=== PATIENT | female | born 1940 | race Caucasian/White ===

== ENCOUNTER 2016-05-25 06:47 | Day surgery (SDC) | payer MEDICARE, BC ==
[~2016-05-25 06:47] MED LIST: Lactated Ringers 1,000 ML IV SCH; Lidocaine 1%/Sod Bicarbonate in NS 8.4% 1 ML Syringe IV PRN; Sodium Chloride 0.9% 10 ML Syringe FLUSH PRN
--- NOTE | 2016-05-25 07:40 | PCM.PREANE ---
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: Reports: no symptoms Respiratory: Reports: no symptoms Cardiovascular: Reports: no symptoms GI: Reports: no symptoms Other: Reports: none - PHYSICAL ASSESSMENT HR: 56 O2 Sat by Pulse Oximetry: 98 RR: 15 BP: 102/56 Temp: 36.4 C Vital Signs: Last Vital Signs Temp 36.4 C 05/25/16 07:00 Pulse 56 L 05/25/16 07:00 Resp 15 05/25/16 07:00 BP 102/65 05/25/16 07:00 Pulse Ox 98 05/25/16 07:00 Height: 1.6 m Weight: 76.793 kg NPO Status Date: 05/24/16 NPO Status Time: 18:30 ASA Class: 2 Mental Status: alert & oriented x3 Dentition: Reports: dentures (top), implants (bottom) Thyro-Mental Finger Breadths: 3 Mouth Opening Finger Breadths: 3 ROM/Head Extension: full Respiratory Status: lungs clear to auscultation bilaterally Cardiovascular Status: regular rate & rhythm, normal S1, S2, no murmur, blood pressure WNL - ALLERGIES Allergies/Adverse Reactions: Allergies Allergy/AdvReac Type Severity Reaction Status Date / Time citric acid Allergy Cannot Verified 05/25/16 07:25 Remember egg Allergy Cannot Verified 05/25/16 07:25 Remember grass pollen Allergy Cannot Verified 05/25/16 07:25 Remember onion Allergy Cannot Verified 05/25/16 07:25 Remember Penicillins Allergy Cannot Verified 05/25/16 07:25 Remember pollen extracts Allergy Cannot Verified 05/25/16 07:25 Remember make-up Allergy Cannot Uncoded 05/25/16 07:25 Remember powder Allergy Cannot Uncoded 05/25/16 07:25 Remember - BLOOD Blood Available: No - ANESTHESIA PLAN Preop Beta Tristen: No Anesthesia Type Planned: MAC - ACKNOWLEDGEMENTS Pt an appropriate candidate for the planned anesthesia: Yes Alternatives and risks of anesthesia discussed w pt/guardian: Yes Pt/Guardian understands and agree with anesthesia plan: Yes PreAnesthesia Questionnaire HEENT History: Reports: Allergic rhinitis, Cataract Cardiovascular History: Reports: Hypertension Respiratory History: Reports: None Gastrointestinal History: Reports: Hiatal hernia PNEUMATIC TUBE FITTER History: Reports: None Musculoskeletal History: Reports: Arthritis Neurological History: Reports: Migraines Psychiatric History: Reports: None Endocrine/Metabolic History: Reports: Hypothyroidism Hematologic History: Reports: Anemia Immunologic History: Reports: None Oncologic (Cancer) History: Reports: None Dermatologic History: Reports: Other (see below) Other Dermatologic History: petechial rash, spontaneous ecchymosis - Past Surgical History Head Surgeries/Procedures: Reports: None HEENT Surgical History: Reports: Cataract surgery, Oral surgery GI Surgical History: Reports: Appendectomy, Cholecystectomy Female Surgical History: Reports: Hysterectomy, Oophorectomy Musculoskeletal Surgical History: Reports: Ganglion cyst, Knee replacement, Other (see below) Other Musculoskeletal Surgeries/Procedures:: foot surgery, Left knee replacement with 6 surgeries post op (manipulation, cyst removal, replaced knee x2) low back surgery, R rotator cuff repair, L scapula cut down - SUBSTANCE USE Smoking Status *Q: Never Smoker - HOME MEDS Home Medications: Home Meds Aspirin [Children's Aspirin] 1 tab PO DAILY 05/24/16 [History] Calcium Citrate/Vitamin D2 [Chepe-Citrate Plus Vitamin D Tab] 1 each PO DAILY 05/09 [History] Ferrous Sulfate [Iron] 1 tab PO DAILY 05/24/16 [History] Garlic [Garlique] 1 tab PO DAILY 05/24/16 [History] Levothyroxine Sodium [Synthroid] 1 tab PO DAILY 05/24/16 [History] Lisinopril 1 tab PO DAILY 05/24/16 [History] Lutein 1 tab PO DAILY 05/24/16 [History] Magnesium 1 tab PO DAILY 05/24/16 [History] Ranitidine HCl [Ranitidine] 1 tab PO DAILY 05/24/16 [History] - CURRENT (IN HOUSE) MEDS Current Meds: Current Medications Lactated Ringer's (Ringers, Lactated) 1,000 mls @ 125 mls/hr IV ASDIRECTED ROBIN Stop: 05/25/16 23:00 Lidocaine/Sodium Bicarbonate (Buffered Lidocaine 1% In Ns 8.4%) 0.25 ml IV ONETIME PRN PRN Reason: Prior to IV Start Stop: 05/25/16 18:00 Sodium Chloride (Saline Flush) 10 ml FLUSH ASDIRECTED PRN PRN Reason: Keep Vein Open Stop: 05/25/16 18:00
[2016-05-25] MEDS ORDERED: Bupivacaine 0.25% 10 ML SDV ONE (07:50)
[2016-05-25] MEDS ORDERED: ceFAZolin 1 GM Vial ONE (08:30)
[2016-05-25] MEDS ORDERED: Propofol 200 MG/20 ML SDV ONE (08:32)
[2016-05-25 09:32] VITALS: BP 152/76
--- NOTE | 2016-06-22 11:45 | OR ---
DATE OF OPERATION: 05/25/2016 SURGEON: Henrry Reyes MD PREOPERATIVE DIAGNOSIS: Left long finger stenosing tenosynovitis. POSTOPERATIVE DIAGNOSIS: Left long finger stenosing tenosynovitis. OPERATION PERFORMED: Left long finger A1 nany release. COMPLICATIONS: None. ESTIMATED BLOOD LOSS: Minimal. ANESTHESIA: Local MAC. CONCRETE PLACEMENT EQUIPMENT OPERATOR: Jasmin Campbell DESCRIPTION OF PROCEDURE: Mrs. Suh is a pleasant female who presents with a stenosing tenosynovitis of her left long finger. After discussing the risks, benefits, and alternatives to the procedure. The patient verbalized understanding and wished to proceed with surgery. The patient was brought to the operating room, left upper extremity was prepped and draped in standard orthopedic fashion. A surgical pause was performed identifying the appropriate patient, appropriate extremity to be operated on. Preoperative antibiotics were given. We injected 0.25% Marcaine without epinephrine into the left long finger. After appropriate anesthesia was obtained left upper extremity was exsanguinated and pneumatic tourniquet was inflated. An incision was made at the palmar crease proximal to the long finger MP flexion crease. Sharp dissection was carried out to the skin and subcutaneous tissue. Hemostasis was obtained. We dissected down over the flexor tendon sheath and we identified both radial and ulnar neurovascular bundles and identified the A1 nany. I released the nany distally down to the level of the proximal A2 nany and then released it proximally. Irrigated the wound sterilely, closed the skin with 5-0 nylon. She was placed in a soft dressing brought to recovery in satisfactory condition. MMODAL /[id number]
== END 2016-05-25 09:29 | disposition home or self-care (01) ==
LOC: JD.SDS 06:47
PROVIDERS: ATTEND Orthopaedic Surgery
PROC: 0LN80ZZ Release Left Hand Tendon, Open Approach (ICD-10-PCS; principal; 2016-05-25)
DX: M65.332 Trigger finger, left middle finger (principal); J30.9 Allergic rhinitis, unspecified; M19.90 Unspecified osteoarthritis, unspecified site; I10 Essential (primary) hypertension; E03.8 Other specified hypothyroidism; Z88.0 Allergy status to penicillin; Z91.048 Other nonmedicinal substance allergy status; Z79.82 Long term (current) use of aspirin; Z79.899 Other long term (current) drug therapy; Z96.659 Presence of unspecified artificial knee joint; Z87.891 Personal history of nicotine dependence
CPT/HCPCS: 01810; J0690; J2704; J7120

== ENCOUNTER 2018-01-09 06:57 | Day surgery (SDC) | payer MEDICARE, BC ==
[2018-01-09] MEDS ORDERED: Lidocaine 1% 4 ML ONE (07:01)
[2018-01-09] MEDS ORDERED: Propofol 200 MG/20 ML SDV ONE (07:01)
[2018-01-09] MEDS ORDERED: fentaNYL 100 MCG/2 ML SDV ONE (07:02)
[2018-01-09] MEDS ORDERED: Sodium Chloride 0.9% 10 ML Syringe FLUSH PRN (07:09)
[2018-01-09] MEDS ORDERED: Lidocaine 1%/Sod Bicarbonate in NS 8.4% 1 ML Syringe IDERM PRN (07:09)
[2018-01-09] MEDS ORDERED: Lactated Ringers 1,000 ML IV SCH (07:15)
--- NOTE | 2018-01-09 07:30 | PCM.PREANE ---
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) Other: Reports: None (history of anemia), Easy Bruising, Thyroid Problems ( hypothyroid), Sinus Problem (allergic rhinits) - Physical Assessment NPO Status Date: 01/08/18 NPO Status Time: 20:00 Pulse: 56 O2 Sat by Pulse Oximetry: 98 Respiratory Rate: 16 Blood Pressure: 138/73 Temperature: 36.6 C Height: 1.63 m Weight: 73.936 kg ASA Class: 2 Mental Status: Alert & Oriented x3 Airway Class: Mallampati = 2 Dentition: Reports: Dentures (upper), Partial (lower) Thyro-Mental Finger Breadths: 3 Mouth Opening Finger Breadths: 3 ROM/Head Extension: Full Lungs: Clear to Auscultation, Normal Respiratory Effort Cardiovascular: Regular Rate, Regular Rhythm, No Murmurs - Allergies Allergies/Adverse Reactions: Allergies Allergy/AdvReac Type Severity Reaction Status Date / Time citric acid Allergy Hives Verified 01/08/18 14:07 egg Allergy Cannot Verified 01/08/18 14:07 Remember grass pollen Allergy Hives Verified 01/08/18 14:07 onion Allergy Anaphylactic Verified 01/08/18 14:07 Shock Penicillins Allergy Anaphylactic Verified 01/08/18 14:07 Shock pollen extracts Allergy Hives Verified 01/08/18 14:07 powder Allergy Hives Uncoded 01/08/18 14:07 - Anesthesia Plan Pre-Op Medication Ordered: None - Acknowledgements Anesthesia Type Planned: MAC Pt an Appropriate Candidate for the Planned Anesthesia: Yes Alternatives and Risks of Anesthesia Discussed w Pt/Guardian: Yes Pt/Guardian Understands and Agrees with Anesthesia Plan: Yes PreAnesthesia Questionnaire HEENT History: Reports: Allergic Rhinitis, Cataract, Impaired Vision Cardiovascular History: Reports: Hypertension Respiratory History: Reports: None Gastrointestinal History: Reports: Hiatal Hernia Genitourinary History: LATH TIER History: Reports: None Musculoskeletal History: Reports: None, Arthritis Neurological History: Reports: Migraines Psychiatric History: Reports: None Endocrine/Metabolic History: Reports: Hypothyroidism Hematologic History: Reports: Anemia Immunologic History: Reports: None Oncologic (Cancer) History: Reports: None Dermatologic History: Reports: Other (See Below) Other Dermatologic History: petechial rash, spontaneous ecchymosis - Infectious Disease History Infectious Disease History: Reports: None - Past Surgical History Head Surgeries/Procedures: Reports: None HEENT Surgical History: Reports: Cataract Surgery, Oral Surgery Cardiovascular Surgical History: Reports: None Respiratory Surgical History: Reports: None GI Surgical History: Reports: Appendectomy, Cholecystectomy Female Surgical History: Reports: Hysterectomy, Oophorectomy Endocrine Surgical History: Reports: None Neurological Surgical History: Reports: Lumbar Spine Musculoskeletal Surgical History: Reports: Ganglion Cyst, Knee Replacement, Other (See Below) Other Musculoskeletal Surgeries/Procedures:: foot surgery, Left knee replacement with 6 surgeries post op (manipulation, cyst removal, replaced knee x2) low back surgery, R rotator cuff repair, L scapula cut down Oncologic Surgical History: Reports: None - SUBSTANCE USE Smoking Status *Q: Never Smoker Second Hand Smoke Exposure: No Recreational Drug Use History: No - HOME MEDS Home Medications: Home Meds Aspirin [Children's Aspirin] 81 mg PO DAILY 05/24/16 [History] Calcium Citrate/Vitamin D2 [Chepe-Citrate Plus Vitamin D Tab] 1 each PO DAILY 05/09 [History] Ferrous Sulfate [Iron] 325 mg PO DAILY 05/24/16 [History] Garlic [Garlique] 1 tab PO DAILY 05/24/16 [History] Levothyroxine Sodium [Synthroid] 75 mg PO BEDTIME 05/24/16 [History] Lisinopril 5 mg PO DAILY 05/24/16 [History] Lutein 6 mg PO DAILY 05/24/16 [History] Magnesium 250 mg PO DAILY 05/24/16 [History] Ranitidine HCl [Ranitidine] 150 mg PO DAILY 05/24/16 [History] - CURRENT (IN HOUSE) MEDS Current Meds: Current Medications Lactated Ringer's (Ringers, Lactated) 1,000 mls @ 125 mls/hr IV ASDIRECTED ROBIN Stop: 01/09/18 23:00 Lidocaine/Sodium Bicarbonate (Buffered Lidocaine 1% In Ns 8.4%) 0.25 ml IDERM ONETIME PRN PRN Reason: Prior to IV Start Stop: 01/09/18 18:00 Sodium Chloride (Saline Flush) 10 ml FLUSH ASDIRECTED PRN PRN Reason: Keep Vein Open Stop: 01/09/18 18:00 Discontinued Medications Fentanyl (Sublimaze) Confirm Administered Dose 100 mcg .ROUTE .STK-MED ONE Stop: 01/09/18 07:03 Lidocaine HCl (Xylocaine-Mpf 1%) Confirm Administered Dose 4 mls @ as directed .ROUTE .STK-MED ONE Stop: 01/09/18 07:02 Propofol (Diprivan 20 Ml) Confirm Administered Dose 200 mg .ROUTE .STK-MED ONE Stop: 01/09/18 07:02
--- NOTE | 2018-01-09 08:04 | PCM48HPAN ---
Post Anesthesia Note - EVALUATION WITHIN 48HRS OF ANESTHETIC Vital Signs in Normal Range: Yes Patient Participated in Evaluation: Yes Respiratory Function Stable: Yes Airway Patent: Yes Cardiovascular Function Stable: Yes Hydration Status Stable: Yes Pain Control Satisfactory: Yes Nausea and Vomiting Control Satisfactory: Yes Mental Status Recovered: Yes Pulse Rate: 52 SaO2: 97 Resp Rate: 10 Temperature: 36.6 C Blood Pressure: 106/62 Pulse Rate: 52
[2018-01-09 09:27] VITALS: BP 115/59
--- NOTE | 2018-01-09 11:57 | OR ---
DATE OF OPERATION: 01/09/2018 SURGEON: Luis Martins MD PREOPERATIVE DIAGNOSIS: Screening colonoscopy. POSTOPERATIVE DIAGNOSIS: Screening colonoscopy. OPERATION PERFORMED: Total colonoscopy. ANESTHESIA: MAC. SPECIMEN: None. OPERATIVE FINDINGS: Extensive diverticula throughout the left side of the colon, otherwise normal. RECOMMENDATIONS: This patient is 77 years old, does not need another screening exam. Colonoscopy should be done for symptoms only. INDICATIONS FOR PROCEDURE: This 77-year-old female presents for screening colonoscopy. Her last one was over 10 years ago. DESCRIPTION OF PROCEDURE: After adequate preparation, a colonoscope was inserted into the rectum. This was passed all the way to the cecum. Confirmation of the cecum was made by visualization of the ileocecal valve and palpation in the right lower quadrant. The bowel prep was good. On withdrawal of the scope, good examination of the colon was accomplished. She has extensive diverticular disease confined to the left colon and especially the sigmoid colon. No evidence of colitis, polyps, masses, or other abnormalities. Rectal and anal examination were also normal. Air was suctioned from the colon and the scope removed. ESTIMATED BLOOD LOSS: MMODAL /[id number]
== END 2018-01-09 08:50 | disposition home or self-care (01) ==
LOC: JD.SDS 06:57
PROVIDERS: ATTEND Surgery
DX: Z12.11 Encounter for screening for malignant neoplasm of colon (principal); K57.30 Diverticulosis of large intestine without perforation or abscess without bleeding; I10 Essential (primary) hypertension; J30.9 Allergic rhinitis, unspecified; M19.90 Unspecified osteoarthritis, unspecified site; E03.9 Hypothyroidism, unspecified; D64.9 Anemia, unspecified; Z79.82 Long term (current) use of aspirin; Z79.899 Other long term (current) drug therapy; Z88.0 Allergy status to penicillin; Z91.012 Allergy to eggs; Z91.018 Allergy to other foods; Z91.048 Other nonmedicinal substance allergy status
CPT/HCPCS: G0121; J2704; J3010; J7120; J2001

== ENCOUNTER → 2019-10-23 | Day surgery (SDC) | payer MEDICARE, BC ==
--- NOTE | 2019-10-22 10:21 | PCM.PREANE ---
Preanesthetic Assessment - Procedure Proposed Procedure: Left thumb A1 [place] Release - Anesthesia/Transfusion/Family Hx Anesthesia History: Prior Anesthesia Without Reaction Family History of Anesthesia Reaction: No Transfusion History: Prior Transfusion Without Reaction Type of Transfusion Reactions: Reports: Other (see below) (needs specific break down of blood Needs A+D) Intubation History: Unknown - Review of Systems General: No Symptoms Pulmonary: No Symptoms (Former smoker: quit smoking in 1963) Cardiovascular: No Symptoms (HTN) Gastrointestinal: No Symptoms (GERD/Hiatal hernia) Neurological: No Symptoms (History of lower back surgery, History of vertigo/positional), Headache (migraines), Numbness (left hand numbness at times) Other: Reports: None (Decreased kidney function (GFR=39)), Easy Bruising, Thyroid Problems (Hypothyroid), Sinus Problem (allergic rhinitis) - Physical Assessment NPO Status Date: 10/22/19 NPO Status Time: 18:00 Vital Signs: HR:64 Sat:93% Resp:16 Temp:97.8 B/P:117/53 Height: 1.63 m Weight: 78 kg ASA Class: 2 Mental Status: Alert & Oriented x3 Airway Class: Mallampati = 2 Dentition: Reports: Dentures (Dentures (upper), Partial (lower) permanent) Thyro-Mental Finger Breadths: 3 Mouth Opening Finger Breadths: 3 ROM/Head Extension: Full Lungs: Clear to Auscultation, Normal Respiratory Effort Cardiovascular: Regular Rate, Regular Rhythm, No Murmurs - Lab Values: Laboratory Last Values COVID-19 PCR Not detected (NOT DETECT) 10/20/19 14:00 - Allergies Allergies/Adverse Reactions: Allergies Allergy/AdvReac Type Severity Reaction Status Date / Time citric acid Allergy Hives Verified 10/22/19 12:55 egg Allergy Cannot Verified 10/22/19 12:55 Remember grass pollen Allergy Hives Verified 10/22/19 12:55 onion Allergy Anaphylactic Verified 10/22/19 12:55 Shock Penicillins Allergy Anaphylactic Verified 10/22/19 12:55 Shock pollen extracts Allergy Hives Verified 10/22/19 12:55 powder Allergy Hives Uncoded 10/22/19 12:55 - Anesthesia Plan Pre-Op Medication Ordered: None - Acknowledgements Anesthesia Type Planned: MAC (Local MAC) Pt an Appropriate Candidate for the Planned Anesthesia: Yes Alternatives and Risks of Anesthesia Discussed w Pt/Guardian: Yes Pt/Guardian Understands and Agrees with Anesthesia Plan: Yes PreAnesthesia Questionnaire HEENT History: Reports: Allergic Rhinitis, Cataract, Impaired Vision Cardiovascular History: Reports: Hypertension Respiratory History: Reports: None Gastrointestinal History: Reports: Hiatal Hernia Genitourinary History: HEALTHCARE ARCHITECT History: Reports: None Musculoskeletal History: Reports: None, Arthritis Neurological History: Reports: Migraines Psychiatric History: Reports: None Endocrine/Metabolic History: Reports: Hypothyroidism Hematologic History: Reports: Anemia Immunologic History: Reports: None Oncologic (Cancer) History: Reports: None Dermatologic History: Reports: Other (See Below) Other Dermatologic History: petechial rash, spontaneous ecchymosis - Infectious Disease History Infectious Disease History: Reports: None - Past Surgical History Head Surgeries/Procedures: Reports: None HEENT Surgical History: Reports: Cataract Surgery, Oral Surgery Cardiovascular Surgical History: Reports: None Respiratory Surgical History: Reports: None GI Surgical History: Reports: Appendectomy, Cholecystectomy Female Surgical History: Reports: Hysterectomy, Oophorectomy Endocrine Surgical History: Reports: None Neurological Surgical History: Reports: Lumbar Spine Musculoskeletal Surgical History: Reports: Ganglion Cyst, Knee Replacement, Other (See Below) Other Musculoskeletal Surgeries/Procedures:: foot surgery, Left knee replacement with 6 surgeries post op (manipulation, cyst removal, replaced knee x2) low back surgery, R rotator cuff repair, L scapula cut down Oncologic Surgical History: Reports: None - HOME MEDS Home Medications: Home Meds Aspirin [Children's Aspirin] 81 mg PO DAILY 05/24/16 [History] Calcium Citrate/Vitamin D2 [Chepe-Citrate Plus Vitamin D Tab] 1 each PO DAILY 05/09 [History] Ferrous Sulfate [Iron] 325 mg PO DAILY 05/24/16 [History] Garlic [Garlique] 1 tab PO DAILY 05/24/16 [History] Levothyroxine Sodium [Synthroid] 75 mg PO BEDTIME 05/24/16 [History] Lisinopril 5 mg PO DAILY 05/24/16 [History] Lutein 6 mg PO DAILY 05/24/16 [History] Acetaminophen [Tylenol Arthritis] 1,300 mg PO BEDTIME 10/22/19 [History] Famotidine [Pepcid] 20 mg PO BID 10/22/19 [History] - CURRENT (IN HOUSE) MEDS Current Meds: Current Medications Lactated Ringer's (Ringers, Lactated) 1,000 mls @ 125 mls/hr IV ASDIRECTED ROBIN Stop: 10/23/19 23:00 Lidocaine/Sodium Bicarbonate (Buffered Lidocaine 1% In Ns 8.4%) 0.25 ml IDERM ONETIME PRN PRN Reason: Prior to IV Start Stop: 10/23/19 18:00 Sodium Chloride (Saline Flush) 10 ml FLUSH ASDIRECTED PRN PRN Reason: Keep Vein Open Stop: 10/23/19 18:00
[~2019-10-23] MED LIST changes: +Bupivacaine 0.25% 10 ML SDV ONE; +HYDROmorphone 0.5 MG/0.5 ML Syringe IVPUSH PRN; +Lidocaine 1% 30 ML SDV ONE; +Lidocaine 1% 6 ML ONE; +Lidocaine 1% with EPINEPHrine 1:100,000 20 ML MDV ONE; +Lidocaine 1%/Sod Bicarbonate in NS 8.4% 1 ML Syringe IDERM PRN; -Lidocaine 1%/Sod Bicarbonate in NS 8.4% 1 ML Syringe IV PRN; +Ondansetron 4 MG/2 ML SDV IVPUSH PRN; +Propofol 200 MG/20 ML SDV ONE; +ceFAZolin 1 GM Vial ONE; +fentaNYL 100 MCG/2 ML SDV IVPUSH PRN; +fentaNYL 100 MCG/2 ML SDV ONE; +fentaNYL 250 MCG/5 ML SDV ONE
[2019-10-23 08:53] VITALS: BP 116/66
--- NOTE | 2019-10-23 08:53 | PCM48HPAN ---
Post Anesthesia Note - EVALUATION WITHIN 48HRS OF ANESTHETIC Vital Signs in Normal Range: Yes Patient Participated in Evaluation: Yes Respiratory Function Stable: Yes Airway Patent: Yes Cardiovascular Function Stable: Yes Hydration Status Stable: Yes Pain Control Satisfactory: Yes Nausea and Vomiting Control Satisfactory: Yes Mental Status Recovered: Yes Vital Signs: Last Vital Signs Temp 36.6 C 10/23/19 07:10 Pulse 64 10/23/19 07:10 Resp 16 10/23/19 07:10 BP 117/53 L 10/23/19 07:10 Pulse Ox 93 L 10/23/19 07:10
[2019-10-23 09:22] VITALS: PULSE 52
--- NOTE | 2019-11-06 13:46 | OR ---
DATE OF OPERATION: 10/23/2019 SURGEON: Henrry Reyes MD PREOPERATIVE DIAGNOSIS: Left thumb stenosing tenosynovitis, M65.312. POSTOPERATIVE DIAGNOSIS: Left thumb stenosing tenosynovitis, M65.312. OPERATION PERFORMED: Left thumb A1 nany release, [id number]. STRIPPER MACHINE OPERATOR: DESCRIPTION OF PROCEDURE: Ms. Suh is a pleasant female with symptomatic left thumb stenosing tenosynovitis. After discussing the risks, benefits, and alternatives to both conservative as well as surgical treatment, the patient verbalized understanding and wished to proceed with surgery. The patient was brought to the operating room and underwent an appropriate anesthesia. Her left upper extremity was prepped and draped in a standard orthopedic fashion. A surgical pause was performed identifying the appropriate patient and appropriate extremity to be operated upon. A longitudinal incision was made across the MP flexion crease. Sharp dissection was carried down through the skin and subcutaneous tissue. Hemostasis was obtained. We identified the radial and ulnar neurovascular bundles. These were mobilized and protected. We then utilized [place] blade. We opened up the A1 nany and released this down to the oblique nany of the thumb. Then, turned our attention proximally to release the flexor sheath proximally. She had moderate synovitis and thickening of the flexor tendon. The tenosynovectomy was performed. With flexion and extension, there was no mechanical locking or catching. The wound was irrigated. The skin was closed with 5-0 nylon. She was placed in a soft dressing and brought to the recovery room in a satisfactory condition. ANESTHESIA: ESTIMATED BLOOD LOSS: MMODAL /[id number]
== END | disposition home or self-care (01) ==
LOC: JD.SDS 07:09
PROVIDERS: ATTEND Orthopaedic Surgery
DX: M65.842 Other synovitis and tenosynovitis, left hand (principal); Z11.59 Encounter for screening for other viral diseases; I10 Essential (primary) hypertension; M65.4 Radial styloid tenosynovitis [de Quervain]; E03.9 Hypothyroidism, unspecified; Z88.0 Allergy status to penicillin; Z91.012 Allergy to eggs; Z88.8 Allergy status to other drugs, medicaments and biological substances; Z91.09 Other allergy status, other than to drugs and biological substances; Z79.82 Long term (current) use of aspirin; Z79.899 Other long term (current) drug therapy; Z98.890 Other specified postprocedural states; Z87.891 Personal history of nicotine dependence
CPT/HCPCS: 26055; J0690; J2001; J2704; J3490; J7120; U0002; 01810; J3010

== ENCOUNTER 2022-09-12 09:19 | Emergency (ER) | payer MEDICARE, BC ==
[2022-09-12] MEDS ORDERED: Sodium Chloride 0.9% 10 ML Syringe FLUSH PRN (09:36)
[2022-09-12 10:15] LABS: BASOPHILS ABSOLUTE AUTO 0.04 K/mm3 (0.01-0.08); BASOPHILS PERCENT AUTO 0.3 % (0.1-1.2); EOSINOPHILS ABSOLUTE AUTO 0.17 K/mm3 (0.04-0.36); EOSINOPHILS PERCENT AUTO 1.3 (0.7-5.8); HEMOGLOBIN 13.4 gm/dl (11.2-15.7); IMMATURE GRAN ABSOLUTE AUTO 0.03 K/mm3 (0.00-0.10); IMMATURE GRAN PERCENT AUTO 0.2 % (<=1.0); LYMPHOCYTES ABSOLUTE AUTO 1.77 K/mm3 (1.18-3.74); LYMPHOCYTES PERCENT AUTO 13.1 % (19.3-51.7); MEAN CORPUSCULAR HGB CONC 31.9 g/dl (32.2-35.5); MEAN CORPUSCULAR VOLUME 94.2 fl (79.4-94.8); MEAN PLATELET VOLUME 9.8 fl (9.4-12.3); MONOCYTES PERCENT AUTO 8.9 % (4.7-12.5); NEUTROPHILS ABSOLUTE AUTO 10.31 K/mm3 (1.56-6.13); NEUTROPHILS PERCENT AUTO 76.2 % (34.0-71.1); PLATELET COUNT,PLT 405 K/mm3 (182-369); RED BLOOD CELL COUNT 4.46 M/mm3 (3.98-5.22); WHITE BLOOD CELL COUNT,WBC 13.52 K/mm3 (3.98-10.04)
[2022-09-12 10:36] LABS: INR 0.95; PROTHROMBIN TIME 10.2 SECONDS (9.7-12.0)
[2022-09-12 10:38] LABS: PTT,PARTIAL THROMBOPLSTIN TIME 27.8 SECONDS (21.7-31.4)
[2022-09-12 10:39] LABS: ALBUMIN 3.9 g/dl (3.4-5.0); ANION GAP 12.5 (5-15); BUN/CREATININE RATIO 14.6 (14-18); CALCIUM 10.1 mg/dL (8.5-10.1); CREATININE 1.3 mg/dL (0.55-1.02); EST CRCL DRUG DOSING (CG) 27.23 mL/min; MAGNESIUM 2.3 mg/dL (1.8-2.4); POTASSIUM,K 4.5 mEq/L (3.5-5.1)
[2022-09-12 12:04] VITALS: BP 123/66; PULSE 77
== END 2022-09-12 12:04 | disposition home or self-care (01) ==
LOC: JD.ED 09:19
DX: S06.5X0A Traumatic subdural hemorrhage without loss of consciousness, initial encounter (principal); S02.2XXA Fracture of nasal bones, initial encounter for closed fracture; R55 Syncope and collapse; I10 Essential (primary) hypertension; E03.9 Hypothyroidism, unspecified; Z88.6 Allergy status to analgesic agent; Z91.012 Allergy to eggs; Z88.0 Allergy status to penicillin; Z91.048 Other nonmedicinal substance allergy status; Z79.899 Other long term (current) drug therapy; Z79.82 Long term (current) use of aspirin; W19.XXXA Unspecified fall, initial encounter
CPT/HCPCS: 36415; 70450; 70486; 72125; 73130; 80053; 83735; 84484; 85025; 85610; 85730; 93005; 93225; 93226; 99284; J3490; 93010; 99283

== ENCOUNTER 2023-03-26 07:06 | Day surgery (SDC) | payer MEDICARE, BC ==
[~2023-03-26 07:06] MED LIST changes: -HYDROmorphone 0.5 MG/0.5 ML Syringe IVPUSH PRN; +Lidocaine 1% 10 ML MDV ONE; -Lidocaine 1% 30 ML SDV ONE; +Lidocaine 1% 5 ML VIAL ONE; -Lidocaine 1% 6 ML ONE; -Lidocaine 1% with EPINEPHrine 1:100,000 20 ML MDV ONE; -Lidocaine 1%/Sod Bicarbonate in NS 8.4% 1 ML Syringe IDERM PRN; -Ondansetron 4 MG/2 ML SDV IVPUSH PRN; +Sodium Chloride 0.9% 10 ML Syringe FLUSH SCH; -ceFAZolin 1 GM Vial ONE; +ceFAZolin 2 GM Vial ONE; -fentaNYL 100 MCG/2 ML SDV IVPUSH PRN; -fentaNYL 100 MCG/2 ML SDV ONE; -fentaNYL 250 MCG/5 ML SDV ONE
[2023-03-26 07:50] VITALS: BP 103/79; PULSE 55
== END 2023-03-26 07:50 | disposition home or self-care (01) ==
LOC: JD.SDS 07:06
PROVIDERS: ATTEND Orthopaedic Surgery
DX: M65.9 Synovitis and tenosynovitis, unspecified (principal); M65.331 Trigger finger, right middle finger; I10 Essential (primary) hypertension; E03.9 Hypothyroidism, unspecified; K21.9 Gastro-esophageal reflux disease without esophagitis; Z87.891 Personal history of nicotine dependence; Z79.890 Hormone replacement therapy; Z79.82 Long term (current) use of aspirin; Z79.899 Other long term (current) drug therapy; Z88.0 Allergy status to penicillin; Z88.6 Allergy status to analgesic agent; Z91.012 Allergy to eggs
CPT/HCPCS: 26055; J0690; J2704; J3490; J7120; 01810; 99100

== ENCOUNTER 2023-04-05 08:17 | Emergency (ER) | payer MEDICARE, BC ==
[2023-04-05 08:28] VITALS: BP 143/95; PULSE 71
== END 2023-04-05 08:35 | disposition home or self-care (01) ==
LOC: JD.ED 08:17
DX: S61.411D Laceration without foreign body of right hand, subsequent encounter (principal); Z48.02 Encounter for removal of sutures; I10 Essential (primary) hypertension; E03.9 Hypothyroidism, unspecified; Z90.49 Acquired absence of other specified parts of digestive tract; Z90.710 Acquired absence of both cervix and uterus; Z88.6 Allergy status to analgesic agent; Z91.012 Allergy to eggs; Z91.018 Allergy to other foods; Z88.0 Allergy status to penicillin; Z91.048 Other nonmedicinal substance allergy status; Z79.899 Other long term (current) drug therapy
CPT/HCPCS: 99281; 99282

== ENCOUNTER 2023-07-24 08:01 | Emergency (ER) | payer MEDICARE, BC ==
[2023-07-24 09:12] VITALS: BP 124/61; PULSE 62
== END 2023-07-24 09:10 | disposition home or self-care (01) ==
LOC: JD.ED 08:01
DX: J01.90 Acute sinusitis, unspecified (principal); I10 Essential (primary) hypertension; E03.9 Hypothyroidism, unspecified; Z88.6 Allergy status to analgesic agent; Z91.018 Allergy to other foods; Z88.0 Allergy status to penicillin; Z91.012 Allergy to eggs; Z91.048 Other nonmedicinal substance allergy status; Z79.899 Other long term (current) drug therapy; Z90.49 Acquired absence of other specified parts of digestive tract
CPT/HCPCS: 71046; 71046-26; 93005; 99284

== ENCOUNTER 2023-10-15 08:34 | Emergency (ER) | payer MEDICARE, BC ==
[2023-10-15 08:48] VITALS: BP 120/95; PULSE 60
== END 2023-10-15 10:08 | disposition left against medical advice (07) ==
LOC: JD.ED 08:34
DX: Z53.21 Procedure and treatment not carried out due to patient leaving prior to being seen by health care provider (principal)

== ENCOUNTER 2023-10-17 08:19 | Emergency (ER) | payer MEDICARE, BC ==
[2023-10-17 09:25] VITALS: BP 122/88; PULSE 88
== END 2023-10-17 09:20 | disposition home or self-care (01) ==
LOC: JD.ED 08:19
DX: M77.8 Other enthesopathies, not elsewhere classified (principal); I10 Essential (primary) hypertension; E03.9 Hypothyroidism, unspecified; Z90.49 Acquired absence of other specified parts of digestive tract; Z90.710 Acquired absence of both cervix and uterus; Z79.890 Hormone replacement therapy; Z79.899 Other long term (current) drug therapy; Z88.0 Allergy status to penicillin; Z91.018 Allergy to other foods; Z91.012 Allergy to eggs; Z91.048 Other nonmedicinal substance allergy status; Z88.6 Allergy status to analgesic agent
CPT/HCPCS: 73130-26-LT; 73130-LT; 99283

== ENCOUNTER 2023-12-17 07:00 | Day surgery (SDC) | payer MEDICARE, BC ==
[~2023-12-17 07:00] MED LIST changes: -Bupivacaine 0.25% 10 ML SDV ONE; -Lidocaine 1% 10 ML MDV ONE; -Lidocaine 1% 5 ML VIAL ONE; -Propofol 200 MG/20 ML SDV ONE; -ceFAZolin 2 GM Vial ONE
[2023-12-17] MEDS: Lactated Ringers 1,000 ML IV SCH (07:30)
[2023-12-17] MEDS ORDERED: HYDROmorphone 0.5 MG/0.5 ML Syringe IVPUSH PRN (07:41)
[2023-12-17] MEDS ORDERED: Ondansetron 4 MG/2 ML SDV IVPUSH PRN (07:41)
[2023-12-17] MEDS ORDERED: fentaNYL 100 MCG/2 ML SDV IVPUSH PRN (07:41)
[2023-12-17] MEDS ORDERED: Ropivacaine 0.5% 5 MG/ML 30 ML SDV ONE (08:14)
[2023-12-17] MEDS ORDERED: ceFAZolin 2 GM Vial ONE (08:36)
[2023-12-17 09:26] VITALS: BP 148/90; PULSE 56
[2023-12-17] MEDS: Bupivacaine 0.25% 10 ML SDV ONE (13:44)
[2023-12-17] MEDS: Lidocaine 1% 10 ML MDV ONE (13:45)
== END 2023-12-17 09:15 | disposition home or self-care (01) ==
LOC: JD.SDS 07:00
PROVIDERS: ATTEND Orthopaedic Surgery
DX: R22.32 Localized swelling, mass and lump, left upper limb (principal); I10 Essential (primary) hypertension; E03.9 Hypothyroidism, unspecified; K21.9 Gastro-esophageal reflux disease without esophagitis; Z87.891 Personal history of nicotine dependence; Z79.82 Long term (current) use of aspirin; Z79.890 Hormone replacement therapy; Z79.899 Other long term (current) drug therapy; Z88.0 Allergy status to penicillin; Z91.012 Allergy to eggs; Z88.6 Allergy status to analgesic agent
CPT/HCPCS: 26115; 88305; J0665; J0690; J2795; J7120; 00400; 99100; J3490

== ENCOUNTER 2024-04-03 14:18 | Emergency (ER) | payer MEDICARE, BC ==
[2024-04-03 14:31] VITALS: BP 157/95; PULSE 73
== END 2024-04-03 14:59 | disposition home or self-care (01) ==
LOC: JD.ED 14:18
DX: M65.4 Radial styloid tenosynovitis [de Quervain] (principal); I10 Essential (primary) hypertension; E03.9 Hypothyroidism, unspecified; Z90.49 Acquired absence of other specified parts of digestive tract; Z90.710 Acquired absence of both cervix and uterus; Z96.659 Presence of unspecified artificial knee joint; Z88.0 Allergy status to penicillin; Z88.6 Allergy status to analgesic agent; Z88.8 Allergy status to other drugs, medicaments and biological substances; Z91.012 Allergy to eggs; Z91.018 Allergy to other foods; Z91.048 Other nonmedicinal substance allergy status; Z79.52 Long term (current) use of systemic steroids; Z79.890 Hormone replacement therapy; Z79.899 Other long term (current) drug therapy
CPT/HCPCS: 99283

== ENCOUNTER 2024-05-24 19:44 | Emergency (ER) | payer MEDICARE, BC ==
[2024-05-24] MEDS: Lidocaine 1% 10 ML MDV INJECT ONE (20:45)
[2024-05-24] MEDS: Diphtheria,Pertussis(Acell),Tetanus Vaccine 0.5 ML Syringe IM ONE (21:05)
[2024-05-24 21:12] VITALS: BP 132/81; PULSE 79
== END 2024-05-24 21:11 | disposition home or self-care (01) ==
LOC: JD.ED 19:44
DX: S01.111A Laceration without foreign body of right eyelid and periocular area, initial encounter (principal); S05.11XA Contusion of eyeball and orbital tissues, right eye, initial encounter; I10 Essential (primary) hypertension; E03.9 Hypothyroidism, unspecified; E66.9 Obesity, unspecified; Z68.33 Body mass index [BMI] 33.0-33.9, adult; Z86.16 Personal history of COVID-19; Z90.49 Acquired absence of other specified parts of digestive tract; Z90.710 Acquired absence of both cervix and uterus; Z88.0 Allergy status to penicillin; Z88.6 Allergy status to analgesic agent; Z88.8 Allergy status to other drugs, medicaments and biological substances; Z91.018 Allergy to other foods; Z91.012 Allergy to eggs; Z91.048 Other nonmedicinal substance allergy status; Z79.890 Hormone replacement therapy; Z79.899 Other long term (current) drug therapy; W00.0XXA Fall on same level due to ice and snow, initial encounter; Z23 Encounter for immunization
CPT/HCPCS: 12011; 70450; 70450-26; 70486; 70486-26; 90471; 90715; 99283; 99283-25; J3490

== ENCOUNTER 2024-06-16 08:39 | Emergency (ER) | payer MEDICARE, BC ==
[2024-06-16 10:07] VITALS: BP 145/97; PULSE 89
== END 2024-06-16 09:53 | disposition home or self-care (01) ==
LOC: JD.ED 08:39
DX: M79.644 Pain in right finger(s) (principal); I10 Essential (primary) hypertension; E03.9 Hypothyroidism, unspecified; Z88.5 Allergy status to narcotic agent; Z91.012 Allergy to eggs; Z91.018 Allergy to other foods; Z88.0 Allergy status to penicillin; Z88.8 Allergy status to other drugs, medicaments and biological substances; Z88.6 Allergy status to analgesic agent; Z91.048 Other nonmedicinal substance allergy status; Z79.890 Hormone replacement therapy; Z79.899 Other long term (current) drug therapy; Z86.16 Personal history of COVID-19; Z90.49 Acquired absence of other specified parts of digestive tract; W19.XXXA Unspecified fall, initial encounter; Y93.89 Activity, other specified
CPT/HCPCS: 73130-26-RT; 73130-RT; 99283

== ENCOUNTER 2024-07-02 11:57 | Emergency (ER) | payer MEDICARE, BC ==
[2024-07-02] MEDS: Acetaminophen 325 MG Tab PO ONE (13:29)
[2024-07-02 13:42] VITALS: BP 113/79; PULSE 68
== END 2024-07-02 13:36 | disposition home or self-care (01) ==
LOC: JD.ED 11:57
DX: M19.041 Primary osteoarthritis, right hand (principal); I10 Essential (primary) hypertension; E03.9 Hypothyroidism, unspecified; E66.9 Obesity, unspecified; Z88.6 Allergy status to analgesic agent; Z91.012 Allergy to eggs; Z91.018 Allergy to other foods; Z88.0 Allergy status to penicillin; Z91.048 Other nonmedicinal substance allergy status; Z88.8 Allergy status to other drugs, medicaments and biological substances; Z79.899 Other long term (current) drug therapy; Z79.890 Hormone replacement therapy; Z86.16 Personal history of COVID-19; Z90.49 Acquired absence of other specified parts of digestive tract; Z90.710 Acquired absence of both cervix and uterus; Z68.29 Body mass index [BMI] 29.0-29.9, adult
CPT/HCPCS: 73130; 99283; A9270